=== PATIENT | male | born 1980 | race Caucasian/White ===

== ENCOUNTER → 2022-01-19 | Outpatient (CLI) | payer OTHER | LOC: RAD 14:19 | DX: Z01.89 Encounter for other specified special examinations (principal) | CPT/HCPCS: 71046 ==

== ENCOUNTER → 2022-02-25 | Outpatient (CLI) | payer OTHER | LOC: RAD 15:36 | DX: Z11.1 Encounter for screening for respiratory tuberculosis (principal) | CPT/HCPCS: 71046 ==